=== PATIENT | male | born 1985 | race Caucasian/White ===

== ENCOUNTER 2017-09-03 09:40 | Outpatient (RCR) | payer OTHER ==
[~2017-09-03 09:40] MED LIST: RIV10 PO
[2017-09-03] MEDS ORDERED: ENOX40DI8 SQ (10:07)
[2017-09-03 12:20] VITALS: BP 126/93
--- NOTE | 2017-09-03 12:57 | ONC Progress Note - NP.Halsey ---
Patient History Date of Service Sep 03, 2017 Reason For Visit/HPI Patient is seen in the clinic today to discuss prophylactic treatment with lovenox post left knee surgery with possible ACL repair and medial meniscus repair with Dr. Hameed next week. He has previously been diagnosed with a DVT of the left calf in July 2012 after having anterior cruciate ligament repair surgery. The patient was maintained on Lovenox and then switched to Xarelto after that. 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 Patient then consult did with Dr. Clarke and was advised to stop anticoagulation therapy. Patient did receive the recommendation that he would require prophylactic Lovenox shots at increased times of clotting such as traveling for long distances, surgeries, admissions to the hospital, or immobilization for any reason. Patient reports that since discontinuing Xarelto on 12/20/2015 he has had no suggestive episodes of her recurrent DVT. 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 He has not taken any prophylactic medication for anticoagulation during these flights. He does try to move his feet and remained fairly active on long flights. This case was discussed with Dr. Clarke today. 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 Thrombophilia workup was positive only for methylenetetrahydrofolate reductase mutation [id number]. The patient was maintained on Lovenox and then switched to Xarelto 20 mg daily until December of 2015. Patient had been told that he would need to be on anticoagulation lifelong. After consult it with Dr. Clarke in December 2015 Xarelto was discontinued with the recommendation of Lovenox 40 mg subcutaneously prior to traveling for long distance and advise the patient to move around every hour or so for 10 minutes to prevent stagnation of his circulation. Psychosocial History Social History He does not have children. He is a [employer] high school sports coach. Medications and Allergies Active Scripts Enoxaparin Sodium (LOVENOX) 40 Mg/0.4 Ml Disp.syrin, 40 MG SQ DAILY, #5 MG Prov:OSMIN FRANCES CANCER REGISTRY MANAGER-BC, ONC 09/03/17 Discontinued Reported Medications Rivaroxaban (XARELTO 10 MG TAB (OR EQUIV)) 10 Mg Tablet, 20 MG PO QDAY, TAB 12/14/15 Review of System/Physical Exam Review of Systems All Systems Reviewed/Normal: Yes, Except as Noted Musculoskeletal: Positive for Joint Pain (left knee pain) Physical Exam Vital Signs Temperature: 98.2 Pulse: 77 BP Systolic: 126 BP Diastolic: 93 Respiratory Rate: 16 O2 SAT: 96 O2 Delivery: Height (inches) 1.00 Weight lb: Weight oz: Weight Kg (Mahad): Pain: 0 ECOG Score: 0 General: Stable, Well Developed, Well Nourished, Not In Acute Distress, Other ( patient recently followed with his primary care provider and was reported that he was released for surgery) Psychiatric: Mood appears normal, Affect appears normal Assessment and Plan Assessment & Plan Patient is seen in the clinic today with a history of deep vein thrombosis of the left calf which was induced after anterior cruciate ligament repair surgery done in July 2012. Thrombophilia workup was positive only for methylenetetrahydrofolate reductase mutation [id number]. The patient was maintained on anticoagulation with Xarelto 20 mg daily with discontinuation in December 2015. Patient denies any recurrent episodes of DVT. Recommendation is to treat patient with prophylactic Lovenox shots 40 mg daily subcutaneous prior to traveling for long distance. Patient has not required this with his recent traveling over the last year. Patient is scheduled for surgery of his left knee with Dr. Hameed next week. I will treat him with Lovenox prophylactic 40 mg subcutaneous 5 days starting after surgery. If patient is in the situation where he is not mobile he will call the clinic and we will continue Lovenox until patient is active and mobile. Patient verbalized understanding. He reports that he he has a long plane flight in October. It is recommended that he take 325 mg aspirin starting the day prior to traveling and throughout his travels for prophylactic protocol or patient would be on Lovenox injections prior to traveling for long distance. During any travel patient is encouraged to move around to prevent stagnation of the circulation. Patient verbalized understanding. Prescription was sent to [facility] pharmacy. Patient is not scheduled to follow in the clinic unless needed. I personally spent a total of 30 minutes. Of that 25 minutes was counseling/ coordination of patient's care. See my note above for details. Copies to: RODOLFO HAMEED MD; VADIM CASTILLO NANCY J CANCER REGISTRY MANAGER-BC, ONC Sep 03, 2017 12:57
== END 2017-09-04 09:15 | disposition home or self-care (01) ==
LOC: ONC 09:40
PROVIDERS: ATTEND Nurse Practitioner Family
DX: Z86.718 Personal history of other venous thrombosis and embolism (principal); E72.12 Methylenetetrahydrofolate reductase deficiency; Z79.01 Long term (current) use of anticoagulants
CPT/HCPCS: 99212